=== PATIENT | female | born 1955 | race Caucasian/White ===

== ENCOUNTER 2021-03-22 08:48 | Emergency (ER) | payer MEDICARE, SELFPAY ==
[2021-03-22 09:36] VITALS: BP 131/68; PULSE 79; RESP 18; TEMP 36.9; O2SAT 98; BMI 29.2
== END 2021-03-22 12:35 | disposition left against medical advice (07) ==
PROVIDERS: Emergency Provider Emergency Medicine; PCP Registered Nurse Diabetes Educator
CPT/HCPCS: 99281

== ENCOUNTER → 2021-04-10 09:44 | Outpatient (CLI) | payer MEDICARE, SELFPAY ==
[2021-04-10 10:04] LABS: RBC Urine None Seen (0-5/HPF)
[2021-04-10 11:45] LABS: Add Manual Diff / Slide Review NO; Basophils Absolute Auto 0 /uL (0-100); Basophils Percent Auto 0.6 % (0-2); Eosinophils Absolute Auto 100 /uL (0-450); Eosinophils Percent Auto 0.8 % (2-4); Hematocrit 38.3 % (36-46); Hemoglobin 12.7 g/dL (12.0-16.0); Lymphocytes Absolute Auto 1400 /uL (1100-4500); Lymphocytes Percent Auto 20.8 % (25-40); Mean Corpuscular HGB Conc 33.2 % (30-36); Mean Corpuscular Hemoglobin 27.5 PG (26-34); Mean Corpuscular Volume 82.7 fL (80-100); Monocytes Absolute Auto 400 /uL (0-900); Monocytes Percent Auto 5.5 % (3-14); Neutrophils Absolute Auto 4900 /uL (1500-7000); Neutrophils Percent Auto 72.3 % (50-75); Platelet Count 224 X10^3/uL (150-400); Red Blood Cell Count 4.63 X10^6/uL (4.0-5.2); Red Cell Distribution Width 14.2 % (11.6-14.8); White Blood Cell Count 6.8 X10^3/uL (4.5-11.0)
[2021-04-10 12:04] LABS: Erythrocyte Sedimentation Rate 23 MM/HR (0-20)
[2021-04-10 12:34] LABS: Appearance Urine UA CLEAR; Bilirubin Urine UA NEGATIVE (NEGATIVE); Color Urine UA YELLOW; Glucose Urine UA NEGATIVE (Negative); Ketones Urine UA TRACE (NEGATIVE); Leukocyte Esterase Urine UA TRACE (NEGATIVE); Nitrite Urine UA NEGATIVE (Negative); Occult Blood Urine UA 1+ (Negative); Protein Urine UA NEGATIVE (Negative); Specific Gravity Urine UA <=1.005 (1.000-1.035); Urobilinogen Urine UA 0.2 E.U./dL (0.2)
[2021-04-10 12:50] LABS: Alanine Aminotransferase 21 IU/L (<35); Albumin 4.5 g/dL (3.5-5.0); Albumin Globulin Ratio 1.3 (1.0-2.8); Alkaline Phosphatase 81 U/L (38-126); Aspartate Aminotransferase 38 IU/L (14-36); BUN Creatinine Ratio 7.1 (6-22); Bilirubin Total 0.4 mg/dL (0.2-1.3); Blood Urea Nitrogen 7 mg/dL (7-17); C-Reactive Protein Quant < 0.5 mg/dL (<1.0); Calcium 9.9 mg/dL (8.4-10.2); Carbon Dioxide 26 mmol/L (22-32); Chloride 103 mmol/L (98-107); Estimated Glomerular Filt Rate 57.3 mL/min (>60); Globulin 3.4 g/dL (1.7-4.1); Glucose 97 mg/dL (80-110); HEMOLYSIS < 15 (0-50); Potassium 3.9 mmol/L (3.4-5.1); Sodium 138 mmol/L (137-145); Total Protein 7.9 g/dL (6.3-8.2)
[2021-04-10 12:50] LABS: Creatinine Urine Random 94.9 mg/dL
[2021-04-10 12:59] LABS: Bacteria Urine Occasional (0-1); Culture Indicated Urine Cult Not Indicated; Squamous Epithelial Cell Urine 0-1 /HPF (0-5/HPF); WBC Urine 0-1/HPF (0-5/HPF)
[2021-04-10 13:00] LABS: Microalbumin Urine Random < 0.6 mg/dL (0-1.6)
[2021-04-10 13:25] LABS: TSH w/ Reflex to FT4 0.11 uIU/mL (0.47-4.68)
[2021-04-10 13:42] LABS: Vitamin B12 968 pg/mL (239-931)
[2021-04-10 15:11] LABS: Free T4, Direct Thyroxine 2.51 ng/dL (0.78-2.19)
== END ==
PROVIDERS: PCP Registered Nurse Diabetes Educator; Referring Provider Registered Nurse Diabetes Educator; Visit Provider Registered Nurse Diabetes Educator
DX: F33.41 Major depressive disorder, recurrent, in partial remission (principal); R63.4 Abnormal weight loss; F41.9 Anxiety disorder, unspecified
CPT/HCPCS: 36415; 80053; 81001; 82043; 82570; 82607; 84439; 84443; 85025; 85651; 86140

== ENCOUNTER → 2021-04-17 09:39 | Outpatient (CLI) | payer MEDICARE, MEDICAID, SELFPAY ==
--- NOTE | 2021-04-17 09:43 | DI.US.S_ITS ---
PROCEDURE: US RENAL COMPLETE INDICATIONS: CHRONIC KIDNEY DISEASE STAGE 3A TECHNIQUE: Real-time scanning was performed of the kidneys and bladder, with image documentation. COMPARISON: None. FINDINGS: Kidneys: Kidneys are reduced in size. Right kidney measures 8.1 cm long; left kidney measures 8.7 cm long. Right renal cortical thickness is 1.4 cm; left renal cortical thickness is 1.5 cm. Renal cortical echotexture is normal. No hydronephrosis or nephrolithiasis. No suspicious solid mass lesions. Bladder: Pre-void bladder volume is 250 cc mL. Post-void residual is 30 mL. Pre-void images demonstrate no intraluminal masses or stones. On pre-void images, bilateral ureteral jets are noted with color Doppler interrogation. (Of note, ureteral jets may not be detectable in up to 25% of cases due to insufficient differences in specific gravity between ureteral and bladder urine). Miscellaneous: No free pelvic fluid. IMPRESSION: No hydronephrosis or nephrolithiasis is found but the renal size is small bilaterally consistent with bilateral renal cortical atrophy. The bladder function appears normal, with only a small postvoid residual of 30 cc. Dictated by: Arturo Ruelas M.D. on 04/17/2021 at 13:04 Approved by: Arturo Ruelas M.D. on 04/17/2021 at 13:06
== END ==
PROVIDERS: PCP Registered Nurse Diabetes Educator; Referring Provider Registered Nurse Diabetes Educator; Visit Provider Registered Nurse Diabetes Educator
DX: N18.31 Chronic kidney disease, stage 3a (principal)
CPT/HCPCS: 76770

== ENCOUNTER → 2021-06-25 15:36 | Outpatient (CLI) | payer MEDICARE, MEDICAID, SELFPAY ==
[2021-06-25 18:13] LABS: TSH w/ Reflex to FT4 0.45 uIU/mL (0.47-4.68)
[2021-06-25 18:54] LABS: Free T4, Direct Thyroxine 1.61 ng/dL (0.78-2.19)
== END ==
PROVIDERS: PCP Registered Nurse Diabetes Educator; Referring Provider Registered Nurse Diabetes Educator; Visit Provider Registered Nurse Diabetes Educator
DX: E03.9 Hypothyroidism, unspecified (principal); N18.31 Chronic kidney disease, stage 3a; R70.0 Elevated erythrocyte sedimentation rate; R74.8 Abnormal levels of other serum enzymes
CPT/HCPCS: 36415; 84439; 84443

== ENCOUNTER → 2021-08-04 09:25 | Outpatient (CLI) | payer MEDICARE, MEDICAID, SELFPAY ==
--- NOTE | 2021-08-04 | DI.MG.S_ITS ---
BILATERAL DIGITAL SCREENING MAMMOGRAM 3D/2D WITH CAD: 08/04/2021 CLINICAL: Routine screening. Family history of breast cancer. Comparison is made to exams dated: 04/01/2018 mammogram, 07/24/2016 mammogram - [facility], and 12/01/2008 mammogram - [facility]. There are scattered fibroglandular elements in both breasts. Current study was also evaluated with a Computer Aided Detection (CAD) system. There is a benign focal asymmetry in the right breast. No significant masses, calcifications, or other findings are seen in either breast. There has been no significant interval change. IMPRESSION: BENIGN There is no mammographic evidence of malignancy. A 1 year screening mammogram is recommended. This exam was interpreted at Station ID: [id number]. NOTE: For mammograms, a report in lay terms will be sent to the patient. Approximately 15% of breast malignancies will not be visualized mammographically. In the management of a palpable breast mass, a negative mammogram must not discourage biopsy of a clinically suspicious lesion. Electronically Signed By: Tanner johnston/glory:08/06/2021 09:55:45 letter sent: Normal Exam ACR BI-RADS Category 2: Benign Finding(s) 3342F
== END ==
PROVIDERS: PCP Registered Nurse Diabetes Educator; Referring Provider Registered Nurse Diabetes Educator; Visit Provider Registered Nurse Diabetes Educator
DX: Z12.31 Encounter for screening mammogram for malignant neoplasm of breast (principal); Z80.3 Family history of malignant neoplasm of breast
CPT/HCPCS: 77063; 77067

== ENCOUNTER → 2021-08-14 08:29 | Outpatient (CLI) | payer MEDICARE, MEDICAID, SELFPAY ==
[2021-08-14 09:18] LABS: Hematocrit 36.2 % (36-46); Hemoglobin 12.3 g/dL (12.0-16.0); Mean Corpuscular HGB Conc 33.9 % (30-36); Mean Corpuscular Hemoglobin 27.9 PG (26-34); Mean Corpuscular Volume 82.3 fL (80-100); Platelet Count 197 X10^3/uL (150-400); Red Cell Distribution Width 13.4 % (11.6-14.8); White Blood Cell Count 6.6 X10^3/uL (4.5-11.0)
[2021-08-14 09:29] LABS: Appearance Urine UA CLEAR; Bilirubin Urine UA NEGATIVE (NEGATIVE); Color Urine UA YELLOW; Glucose Urine UA NEGATIVE (Negative); Ketones Urine UA NEGATIVE (NEGATIVE); Leukocyte Esterase Urine UA 1+ (NEGATIVE); Nitrite Urine UA NEGATIVE (Negative); Occult Blood Urine UA 1+ (Negative); Protein Urine UA NEGATIVE (Negative); Specific Gravity Urine UA 1.015 (1.000-1.035)
[2021-08-14 09:31] LABS: pH Urine UA 5.5 (4.5-8.0)
[2021-08-14 10:04] LABS: Bacteria Urine Few (2-10); Culture Indicated Urine Specimen Cultured; RBC Urine 0-1/HPF (0-5/HPF); Squamous Epithelial Cell Urine 1-5 /HPF (0-5/HPF); Transitional Epi Cells Urine 5-10/HPF (0-5/HPF); WBC Urine 5-10/HPF (0-5/HPF)
[2021-08-14 10:48] LABS: Alanine Aminotransferase 7 IU/L (<35); Albumin 4.3 g/dL (3.5-5.0); Albumin Globulin Ratio 1.3 (1.0-2.8); Alkaline Phosphatase 87 U/L (38-126); Aspartate Aminotransferase 25 IU/L (14-36); BUN Creatinine Ratio 6.9 (6-22); Bilirubin Total 0.5 mg/dL (0.2-1.3); Blood Urea Nitrogen 7 mg/dL (7-17); Calcium 9.5 mg/dL (8.4-10.2); Carbon Dioxide 31 mmol/L (22-32); Chloride 104 mmol/L (98-107); Cholesterol 150 mg/dL (140-199); Estimated Glomerular Filt Rate 54.7 mL/min (>60); Globulin 3.2 g/dL (1.7-4.1); Glucose 104 mg/dL (80-110); HDL Cholesterol 70 mg/dL (40-60); HEMOLYSIS < 15 (0-50); LDL Cholesterol Calculated 60 mg/dL (<100); Potassium 3.4 mmol/L (3.4-5.1); Sodium 143 mmol/L (137-145); Total Protein 7.5 g/dL (6.3-8.2); Triglycerides 101 mg/dL (35-150)
[2021-08-14 10:54] LABS: Creatinine Urine Random 174.4 mg/dL
[2021-08-14 11:01] LABS: Microalbumi Creatinin Ratio Ur 7.4 ug/mg CR (<30); Microalbumin Urine Random 1.3 mg/dL (0-1.6)
[2021-08-14 11:02] LABS: TSH w/ Reflex to FT4 4.83 uIU/mL (0.47-4.68)
[2021-08-14 11:30] LABS: Free T4, Direct Thyroxine 1.68 ng/dL (0.78-2.19)
== END ==
PROVIDERS: PCP Registered Nurse Diabetes Educator; Referring Provider Registered Nurse Diabetes Educator; Visit Provider Registered Nurse Diabetes Educator
DX: N18.31 Chronic kidney disease, stage 3a (principal); E03.9 Hypothyroidism, unspecified; E78.5 Hyperlipidemia, unspecified
CPT/HCPCS: 36415; 80053; 80061; 81001; 82043; 82570; 84439; 84443; 85027; 87086

== ENCOUNTER → 2021-09-06 15:34 | Outpatient (CLI) | payer MEDICARE, MEDICAID, SELFPAY | PROVIDERS: PCP Registered Nurse Diabetes Educator; Visit Provider Registered Nurse Diabetes Educator | DX: R10.9 Unspecified abdominal pain (principal) | CPT/HCPCS: 87086 ==

== ENCOUNTER 2021-09-12 11:54 | Emergency (ER) | payer MEDICARE, MEDICAID, SELFPAY ==
[2021-09-12 12:03] VITALS: BP 181/77; PULSE 85; RESP 15; TEMP 36.6; O2SAT 98; BMI 25.9
[2021-09-12 15:45] VITALS: BP 177/83; PULSE 81; RESP 18; O2SAT 98
[2021-09-12 16:05] LABS: Appearance Urine UA CLEAR; Bilirubin Urine UA NEGATIVE (NEGATIVE); Color Urine UA YELLOW; Glucose Urine UA NEGATIVE (Negative); Ketones Urine UA NEGATIVE (NEGATIVE); Leukocyte Esterase Urine UA NEGATIVE (NEGATIVE); Nitrite Urine UA NEGATIVE (Negative); Occult Blood Urine UA NEGATIVE (Negative); Protein Urine UA NEGATIVE (Negative); Specific Gravity Urine UA <=1.005 (1.000-1.035); Urobilinogen Urine UA 0.2 E.U./dL (0.2)
[2021-09-12 16:16] LABS: Bacteria Urine None Seen; Culture Indicated Urine Cult Not Indicated; RBC Urine None Seen (0-5/HPF); Squamous Epithelial Cell Urine 0-1 /HPF (0-5/HPF); WBC Urine 0-1/HPF (0-5/HPF)
--- NOTE | 2021-09-12 16:18 | DI.CT.S_ITS ---
PROCEDURE: CT ABDOMEN PELVIS W CON INDICATIONS: pelvic pain TECHNIQUE: After the administration of oral and IV contrast, axial sections were acquired from the lung bases to the pubic symphysis. Coronal and sagittal reformats were performed. For radiation dose reduction, the following was used: automated exposure control, adjustment of mA and/or kV according to patient size. COMPARISON: [facility], MR, MR ABDOMEN PELVIS WITH/WITHOUT CONTRAST, 08/09/2021, 14:09. FINDINGS: Image quality: Excellent. Lung bases: Unremarkable. Heart: No significant findings. ABDOMEN: Liver: Unremarkable. Decreased attenuation, compatible with hepatic steatosis. Gallbladder: Unremarkable. Biliary ducts: Unremarkable. Pancreas: Unremarkable. Spleen: Unremarkable. Adrenal Glands: Unremarkable. Kidneys and Ureters: Unremarkable. Stomach and Bowel: No evidence of intestinal obstruction or inflammatory change. [id number]-np-[id number] stool burden throughout the colon. Normal appearance of the appendix. Peritoneum: No abnormal intraperitoneal fluid. No free air. Ventral Wall: No hernia. Abdominal Nodes: No retroperitoneal or mesenteric adenopathy by size criteria. Vessels: Aorta and inferior vena cava are normal in size. PELVIS: Pelvic Organs: Unremarkable. Tubal ligation clips are seen. Bladder: Unremarkable. Pelvic Nodes: No enlarged lymph nodes. Miscellaneous: No inguinal hernias are seen. Bones: Unremarkable. Minimal grade 1 anterolisthesis at L4-5. IMPRESSION: 1. No acute intra-abdominal/pelvic abnormality. Dictated by: Isaac Mcguire M.D. on 09/12/2021 at 17:52 Approved by: Isaac Mcguire M.D. on 09/12/2021 at 17:57
[2021-09-12] MEDS: PHENAZOPYRIDINE 100 MG TABLET PO (16:22)
[2021-09-12] MEDS: cefUROXime 250 MG TABLET 500 MG PO (16:24)
--- NOTE | 2021-09-12 16:44 | ED.FEMALEGU ---
HPI - Female Genitourinary <Roma De La Garza, [facility] - Last Filed: 09/12/21 21:01> General Chief complaint: Urogenital-Female Stated complaint: Pressure/pain from UTI. Meds aren't helping Time Seen by Provider: 09/12/21 15:36 Source: patient Mode of arrival: Ambulatory History of Present Illness HPI Narrative: 65-year-old female presents to the emergency department complaining of dysuria and low pelvic pressure which has been ongoing since she started antibiotics for UTI 6 days ago. Patient has been on a course of Bactrim. Patient complains of pelvic fullness and discomfort, and nausea without vomiting. She also endorses a history of hypothyroidism, Patricio's esophagus, CKD, low back pain depression and anxiety. Patient denies any recent fever, she denies any rash, she denies any flank pain. Patient reports that she has been drinking a lot of fluids to stay hydrated but urination is still painful. She endorses that she does not eat much because she does not have an appetite, she has not felt well for weeks so she does not eat when she does not feel good. Related Data Previous Rx's Medication Instructions Recorded trazodone 50 mg tablet 25 mg PO DAILY PRN #30 tab 05/28/21 sumatriptan succinate 6 mg/0.5 mL 6 mg (0.5 mL) SUBCUT ONCE PRN #12 07/20/21 subcutaneous pen injector (Imitrex ml STATdose Pen) ondansetron HCl 4 mg tablet 4 mg PO Q8H PRN #30 tab 07/31/21 erenumab-aooe 140 mg/mL 140 mg SUBCUT QMONTH #1 ml 08/20/21 subcutaneous auto-injector (Aimovig Autoinjector) levothyroxine 50 mcg tablet 50 mcg PO DAILY #90 tab 08/20/21 omeprazole 20 mg capsule,delayed 20 mg PO BID #180 cap 08/20/21 release simvastatin 40 mg tablet 40 mg PO BEDTIME #90 tab 08/20/21 trazodone 100 mg tablet 100 mg PO DAILY #90 tab 08/20/21 sulfamethoxazole 800 1 tab PO BID #14 tab 09/06/21 mg-trimethoprim 160 mg tablet (Bactrim DS) cefdinir 300 mg capsule 300 mg PO BID 7 Days #14 cap 09/12/21 ondansetron HCl 4 mg tablet 4 mg PO Q8H PRN #14 tab 09/12/21 (Zofran) phenazopyridine 100 mg tablet 100 mg PO TID PRN #7 tab 09/12/21 (Pyridium) Allergies Allergy/AdvReac Type Severity Reaction Status Date / Time No Known Drug Allergies Allergy Verified 09/12/21 12:03 Review of Systems <SANTIAGO Whiting - Last Filed: 09/12/21 21:01> Review of Systems Narrative: General: denies fever, chills Head/Neck: denies headache, neck pain Eyes: denies visual changes, eye pain Cardio: denies chest pain, palpitations Respiratory: denies shortness of breath, cough GI: denies abdominal pain, nausea, vomiting, or diarrhea : Endorses dysuria without hematuria, complains of low pelvic pressure MSK: denies joint pain, muscle weakness Skin: denies rash, itching Neuro: denies numbness, tingling Patient History <SANTIAGO Whiting - Last Filed: 09/12/21 21:01> Medical History Anxiety Barretts esophagus Chronic low back pain CKD (chronic kidney disease) stage 3, GFR 30-59 ml/min Colon polyps Depression Dyslipidemia Fibromyalgia Hypothyroidism Migraine headache with aura Obstructive sleep apnea PTSD (post-traumatic stress disorder) Renal atrophy, bilateral alcohol intake frequency: holidays/special occasions only Substance Use Type: does not use Exam <SANTIAGO Whiting - Last Filed: 09/12/21 21:01> Narrative Exam Narrative: Independently reviewed vitals signs and nursing notes. General: Awake, alert, nontoxic, no cardiorespiratory distress Head/Neck: Atraumatic, neck full range of motion Eyes: EOMI, conjunctiva normal Nose: nares patent, no rhinorrhea Mouth/Throat: moist mucus membranes, posterior pharynx normal, no oral lesions Cardio: Regular rate and rhythm, no peripheral edema Respiratory: respirations unlabored without wheezing, stridor, or rales. No retractions. GI: Abdomen soft, nontender to palpation x4 quadrants, pelvic area is nontender to palpation as well but she endorses feeling bloated MSK: Moves all extremities, neurovascularly intact Skin: Normal capillary refill, no rash Neuro: Normal speech and cognition, normal gait Initial Vital Signs Initial Vital Signs: Vital Signs Temperature 97.9 F 09/12/21 12:03 Pulse Rate 85 09/12/21 12:03 Respiratory Rate 15 09/12/21 12:03 Blood Pressure 181/77 H 09/12/21 12:03 Pulse Oximetry 98 09/12/21 12:03 <Tanner Valle MD - Last Filed: 09/17/21 12:27> Initial Vital Signs Initial Vital Signs: Vital Signs Temperature 97.9 F 09/12/21 12:03 Pulse Rate 85 09/12/21 12:03 Respiratory Rate 15 09/12/21 12:03 Blood Pressure 181/77 H 09/12/21 12:03 Pulse Oximetry 98 09/12/21 12:03 Course <SANTIAGO Whiting - Last Filed: 09/12/21 21:01> Orders Ordered: Discontinued Medications Cefuroxime Axetil (Cefuroxime 250 Mg Tablet) 500 mg PO NOW ONE Stop: 09/12/21 16:09 Last Admin: 09/12/21 16:24 Dose: Not Given Documented by: CARMEN Cefuroxime Axetil (Cefuroxime 250 Mg Tablet) 500 mg PO NOW ONE Stop: 09/12/21 16:23 Last Admin: 09/12/21 16:24 Dose: 500 mg Documented by: CARMEN Sodium Chloride (Normal Saline 0.9%) 1,000 mls @ 1,000 mls/hr IV BOLUS ONE Stop: 09/12/21 19:04 Last Admin: 09/12/21 18:13 Dose: 1,000 mls/hr Documented by: CARMEN Phenazopyridine HCl (Phenazopyridine 100 Mg Tablet) 100 mg PO NOW ONE Stop: 09/12/21 16:10 Last Admin: 09/12/21 16:22 Dose: 100 mg Documented by: CAREMN Potassium Chloride (Potassium Chloride 20 Meq Tab) 20 meq PO NOW ONE Stop: 09/12/21 18:06 Last Admin: 09/12/21 18:12 Dose: 20 meq Documented by: CARMEN Vital Signs Vital signs: Vital Signs - 8 hr 09/12/21 15:45 09/12/21 17:10 09/12/21 18:17 Pulse Rate 81 80 73 Respiratory Rate 18 18 18 Blood Pressure 177/83 H 159/72 H 154/101 H Pulse Oximetry 98 96 98 09/12/21 19:13 Pulse Rate 75 Respiratory Rate 18 Blood Pressure 155/90 H Pulse Oximetry 98 <Tanner Valle MD - Last Filed: 09/17/21 12:27> Orders Ordered: Discontinued Medications Cefuroxime Axetil (Cefuroxime 250 Mg Tablet) 500 mg PO NOW ONE Stop: 09/12/21 16:09 Last Admin: 09/12/21 16:24 Dose: Not Given Documented by: CARMEN Cefuroxime Axetil (Cefuroxime 250 Mg Tablet) 500 mg PO NOW ONE Stop: 09/12/21 16:23 Last Admin: 09/12/21 16:24 Dose: 500 mg Documented by: CARMEN Sodium Chloride (Normal Saline 0.9%) 1,000 mls @ 1,000 mls/hr IV BOLUS ONE Stop: 09/12/21 19:04 Last Admin: 09/12/21 18:13 Dose: 1,000 mls/hr Documented by: CARMEN Phenazopyridine HCl (Phenazopyridine 100 Mg Tablet) 100 mg PO NOW ONE Stop: 09/12/21 16:10 Last Admin: 09/12/21 16:22 Dose: 100 mg Documented by: CARMEN Potassium Chloride (Potassium Chloride 20 Meq Tab) 20 meq PO NOW ONE Stop: 09/12/21 18:06 Last Admin: 09/12/21 18:12 Dose: 20 meq Documented by: CARMEN Vital Signs Vital signs: Vital Signs - 8 hr 09/12/21 15:45 09/12/21 17:10 09/12/21 18:17 Pulse Rate 81 80 73 Respiratory Rate 18 18 18 Blood Pressure 177/83 H 159/72 H 154/101 H Pulse Oximetry 98 96 98 09/12/21 19:13 Pulse Rate 75 Respiratory Rate 18 Blood Pressure 155/90 H Pulse Oximetry 98 MDM - Female Genitourinary <SANTIAGO Whiting - Last Filed: 09/12/21 21:01> Lab Data Result diagrams: 09/12/21 17:06 09/12/21 17:06 Labs: Lab Results 01/12/22 01/12/22 01/12/22 Range/Units 15:37 17:06 17:06 WBC 9.6 (4.5-11.0) X10^3/uL RBC 4.39 (4.0-5.2) X10^6/uL Hgb 12.1 (12.0-16.0) g/dL Hct 35.9 L (36-46) % MCV 81.8 (80-100) fL MCH 27.5 (26-34) PG MCHC 33.7 (30-36) % RDW 13.7 (11.6-14.8) % Plt Count 226 (150-400) X10^3/uL Neut % (Auto) Not Reportable Lymph % (Auto) Not Reportable [place] % (Auto) Not Reportable Eos % (Auto) Not Reportable Baso % (Auto) Not Reportable Lymph # (Auto) Not Reportable [place] # (Auto) Not Reportable Baso # (Auto) Not Reportable Total Counted 100 Seg Neutrophils % 58.0 (38-70) % Lymphocytes % (Manual) 24.0 L (25-45) % Atypical Lymphs % 11.0 H ( - 0) % Monocytes % (Manual) 6.0 (2-11) % Eosinophils % (Manual) 1.0 L (2-4) % Neutrophils # (Manual) 5568 (7482-2355) /uL RBC Morphology Normal morphology Sodium 139 (137-145) mmol/L Potassium 2.8 L (3.4-5.1) mmol/L Chloride 97 L (98-107) mmol/L Carbon Dioxide 33 H (22-32) mmol/L BUN 10 (7-17) mg/dL Creatinine 1.09 H (0.52-1.04) mg/dL Estimated GFR 50.7 L (>60) mL/min BUN/Creatinine Ratio 9.2 (6-22) Glucose 105 (80-110) mg/dL Calcium 9.5 (8.4-10.2) mg/dL Total Bilirubin 0.5 (0.2-1.3) mg/dL AST 30 (14-36) IU/L ALT 9 (<35) IU/L Alkaline Phosphatase 70 (38-126) U/L Total Protein 8.0 (6.3-8.2) g/dL Albumin 4.6 (3.5-5.0) g/dL Globulin 3.4 (1.7-4.1) g/dL Albumin/Globulin Ratio 1.4 (1.0-2.8) Urine Color Yellow Urine Appearance Clear Urine pH 7.0 (4.5-8.0) Ur Specific [place] <=1.005 (1.000-1.035) Urine Protein Negative (Negative) Urine Glucose (UA) Negative (Negative) g/dL Urine Ketones Negative (NEGATIVE) Urine Occult Blood Negative (Negative) Urine Nitrate Negative (Negative) Urine Bilirubin Negative (NEGATIVE) Urine Urobilinogen 0.2 (0.2) E.U./dL Ur Leukocyte Esterase Negative (NEGATIVE) Urine RBC None seen (0-5/HPF) Urine WBC 0-1/hpf (0-5/HPF) Ur Squamous Epith Cells 0-1 /hpf (0-5/HPF) Urine Bacteria None seen (None) Ur Culture Indicated? Cult not indicated Imaging Data CT scan - abdomen/pelvis: Radiologist's Impression: PROCEDURE:? CT ABDOMEN PELVIS W CON ? INDICATIONS:? pelvic pain ? TECHNIQUE:? After the administration of oral and IV contrast, axial sections were acquired from the lung bases to the pubic symphysis.? Coronal and sagittal reformats were performed.? For radiation dose reduction, the following was used:? automated exposure control, adjustment of mA and/or kV according to patient size. ? COMPARISON:? [facility], MR, MR ABDOMEN PELVIS WITH/WITHOUT CONTRAST, 08/09/2021, 14:09. ? FINDINGS:? Image quality:? Excellent.? ? Lung bases:? Unremarkable.? ? Heart:? No significant findings. ? ? ABDOMEN: Liver:? Unremarkable.? ? Decreased attenuation, compatible with hepatic steatosis. Gallbladder:? Unremarkable.? ? Biliary ducts:? Unremarkable.? ? Pancreas:? Unremarkable.? ? Spleen:? Unremarkable.? ? Adrenal Glands:? Unremarkable.? ? Kidneys and Ureters:? Unremarkable.? ? ? Stomach and Bowel:? No evidence of intestinal obstruction or inflammatory change.? Pphy-zs-rpaufcse stool burden throughout the colon.? Normal appearance of the appendix. Peritoneum:? No abnormal intraperitoneal fluid.? No free air.? ? Ventral Wall: ? No hernia.? Abdominal Nodes:? No retroperitoneal or mesenteric adenopathy by size criteria.? Vessels:? Aorta and inferior vena cava are normal in size.? ? PELVIS: Pelvic Organs:? Unremarkable.? ? Tubal ligation clips are seen. Bladder:? Unremarkable.? ? Pelvic Nodes: No enlarged lymph nodes.? Miscellaneous: No inguinal hernias are seen. ? ? ? Bones:? Unremarkable.? ? Minimal grade 1 anterolisthesis at L4-5. ? ? IMPRESSION:? ? 1.? No acute intra-abdominal/pelvic abnormality.? ? ? Dictated by: Isaac Mcguire M.D. on 09/12/2021 at 17:52 ? ? Approved by: Isaac Mcguire M.D. on 09/12/2021 at 17:57 ? MDM Narrative Medical decision making narrative: 65-year-old female presents to the emergency department for dysuria and pelvic pressure complaints and is on day 6 of Bactrim for a UTI. Patient reports that she has not been eating much recently and her nutrition has been poor. Her exam was unremarkable, CT imaging was obtained upper pelvis because she mentioned that she is concerned something was wrong with her reproductive organs, she denies any hysterectomy or vaginal bleeding. Her CT was unremarkable without signs of acute cystitis however her urine might not reflect bacteria due to her current regimen on Bactrim. On chart review her urine culture was indeterminate with 3 or more colony types and mixed Gram-positive ab. I suspect that her urine is most likely resistant to Bactrim, another urine culture was sent, she was transitioned to cefdinir which will hopefully be auto claim representative on her kidneys. Patient was given 1 L of normal saline after getting IV contrast to reduce possible ANNIE. Patient understands to follow-up with Mihai Shaw at the soonest available appointment, she was also found to have a potassium of 2.8 but due to her elevated creatinine I opted to give her only 20 mEq of potassium and encouraged her to start taking a multi-vitamin daily and eating nutritious food. Patient endorses that she does eat much and she has not been feeling good for quite some time. Patient is appropriate and amenable to discharge home. Vital signs are stable on repeat examination is unremarkable. Patient has been informed of results. Patient has been given strict return to ER precautions for any new or worsening symptoms. Patient understands to follow up closely with outpatient providers as instructed. Patient understands plan and agrees to discharge home. All questions and concerns answered at this time. <Tanner Valle MD - Last Filed: 09/17/21 12:27> Lab Data Labs: Lab Results 09/12/21 09/12/21 09/12/21 Range/Units 15:37 17:06 17:06 WBC 9.6 (4.5-11.0) X10^3/uL RBC 4.39 (4.0-5.2) X10^6/uL Hgb 12.1 (12.0-16.0) g/dL Hct 35.9 L (36-46) % MCV 81.8 (80-100) fL MCH 27.5 (26-34) PG MCHC 33.7 (30-36) % RDW 13.7 (11.6-14.8) % Plt Count 226 (150-400) X10^3/uL Neut % (Auto) Not Reportable Lymph % (Auto) Not Reportable [place] % (Auto) Not Reportable Eos % (Auto) Not Reportable Baso % (Auto) Not Reportable Lymph # (Auto) Not Reportable [place] # (Auto) Not Reportable Baso # (Auto) Not Reportable Total Counted 100 Seg Neutrophils % 58.0 (38-70) % Lymphocytes % (Manual) 24.0 L (25-45) % Atypical Lymphs % 11.0 H ( - 0) % Monocytes % (Manual) 6.0 (2-11) % Eosinophils % (Manual) 1.0 L (2-4) % Neutrophils # (Manual) 5568 (8165-1626) /uL RBC Morphology Normal morphology Sodium 139 (137-145) mmol/L Potassium 2.8 L (3.4-5.1) mmol/L Chloride 97 L (98-107) mmol/L Carbon Dioxide 33 H (22-32) mmol/L BUN 10 (7-17) mg/dL Creatinine 1.09 H (0.52-1.04) mg/dL Estimated GFR 50.7 L (>60) mL/min BUN/Creatinine Ratio 9.2 (6-22) Glucose 105 (80-110) mg/dL Calcium 9.5 (8.4-10.2) mg/dL Total Bilirubin 0.5 (0.2-1.3) mg/dL AST 30 (14-36) IU/L ALT 9 (<35) IU/L Alkaline Phosphatase 70 (38-126) U/L Total Protein 8.0 (6.3-8.2) g/dL Albumin 4.6 (3.5-5.0) g/dL Globulin 3.4 (1.7-4.1) g/dL Albumin/Globulin Ratio 1.4 (1.0-2.8) Urine Color Yellow Urine Appearance Clear Urine pH 7.0 (4.5-8.0) Ur Specific [place] <=1.005 (1.000-1.035) Urine Protein Negative (Negative) Urine Glucose (UA) Negative (Negative) g/dL Urine Ketones Negative (NEGATIVE) Urine Occult Blood Negative (Negative) Urine Nitrate Negative (Negative) Urine Bilirubin Negative (NEGATIVE) Urine Urobilinogen 0.2 (0.2) E.U./dL Ur Leukocyte Esterase Negative (NEGATIVE) Urine RBC None seen (0-5/HPF) Urine WBC 0-1/hpf (0-5/HPF) Ur Squamous Epith Cells 0-1 /hpf (0-5/HPF) Urine Bacteria None seen (None) Ur Culture Indicated? Cult not indicated Discharge Plan Departure Patient Disposition: Home Clinical Impression: UTI (urinary tract infection) Qualifiers: Urinary tract infection type: acute cystitis Hematuria presence: with hematuria Qualified Code(s): N30.01 - Acute cystitis with hematuria Instructions: DI for Urinary Tract Infection (UTI) Activity Restrictions/Additional Instructions: Linda, thank you for coming in today and trusting us with your care. This is most likely a UTI which has been resistant to your Bactrim antibiotic which he been taking. I have called in a new prescription for you as well as some nausea medicine and Pyridium to help with the spasming. Please follow-up with Mihai Bradford as soon as you can. I believe that you have had a nutrition deficit for the last long while based on your lab work. Please remember to trying eat healthy foods and stay hydrated. I hope you feel better soon. *What to do: *Please continue to take your regular medications as directed. [ x] New medication prescriptions sent to your pharmacy: [ [facility]] [ ] New medication written as a paper prescription [] No new medications given *Please follow up with your primary care provider in 2-3 days, call for an appointment. Let them know you were seen in the Emergency Department and that we ask that you be seen in follow up. We will electronically transmit a record of today's note if your PCP is in our system *If you do not have a primary care provider please contact the [facility] Resource line at [phone]. They will ask some questions about your medical history and help get you set up with a doctor in the community. *Return to Emergency Department if you should have any new, worsening or concerning symptoms, such as [fever greater than 101F, chills, worsening pain, persistent vomiting or other bothersome symptoms] Prescriptions: New cefdinir 300 mg capsule 300 mg PO BID 7 Days Qty: 14 0RF ondansetron HCl [Zofran] 4 mg tablet 4 mg PO Q8H PRN (Reason: nausea and vomiting) Qty: 14 0RF phenazopyridine [Pyridium] 100 mg tablet 100 mg PO TID PRN (Reason: pain) Qty: 7 0RF No Action sumatriptan succinate [Imitrex STATdose Pen] 6 mg/0.5 mL pen injector 6 mg SUBCUT ONCE PRN (Reason: migraine headache) Qty: 12 3RF Rx Instructions: may repeat dose once in 1 hour if not relieved levothyroxine 50 mcg tablet 50 mcg PO DAILY Qty: 90 0RF simvastatin 40 mg tablet 40 mg PO BEDTIME Qty: 90 3RF Aimovig Autoinjector 140 mg/mL auto-injector 140 mg SUBCUT QMONTH Qty: 1 11RF omeprazole 20 mg capsule,delayed release(DR/EC) 20 mg PO BID Qty: 180 3RF trazodone 100 mg tablet 100 mg PO DAILY Qty: 90 3RF trazodone 50 mg tablet 25 mg PO DAILY PRN (Reason: anxiety) Qty: 30 1RF Rx Instructions: Take as needed during the day in addition to nighttime dose ondansetron HCl 4 mg tablet 4 mg PO Q8H PRN (Reason: nausea and vomiting) Qty: 30 1RF sulfamethoxazole-trimethoprim [Bactrim DS] 800-160 mg tablet 1 tab PO BID Qty: 14 0RF Referrals: Mihai Bradford ARNP [Primary Care Provider] - <Tanner Valle MD - Last Filed: 09/17/21 12:27> Cosign ED Attending Cosignature Attestation: I was immediately available in the department for consultation. This documentation has been reviewed and I agree with assessment and plan. Supervised by Tanner Valle MD
[2021-09-12 17:10] VITALS: BP 159/72; PULSE 80; RESP 18; O2SAT 96
[2021-09-12 17:18] LABS: Hematocrit 35.9 % (36-46); Hemoglobin 12.1 g/dL (12.0-16.0); Mean Corpuscular HGB Conc 33.7 % (30-36); Mean Corpuscular Hemoglobin 27.5 PG (26-34); Mean Corpuscular Volume 81.8 fL (80-100); Platelet Count 226 X10^3/uL (150-400); Red Blood Cell Count 4.39 X10^6/uL (4.0-5.2); Red Cell Distribution Width 13.7 % (11.6-14.8); White Blood Cell Count 9.6 X10^3/uL (4.5-11.0)
[2021-09-12 17:21] LABS: Add Manual Diff / Slide Review YES
[2021-09-12 17:31] LABS: Alanine Aminotransferase 9 IU/L (<35); Albumin 4.6 g/dL (3.5-5.0); Albumin Globulin Ratio 1.4 (1.0-2.8); Alkaline Phosphatase 70 U/L (38-126); Aspartate Aminotransferase 30 IU/L (14-36); BUN Creatinine Ratio 9.2 (6-22); Bilirubin Total 0.5 mg/dL (0.2-1.3); Blood Urea Nitrogen 10 mg/dL (7-17); Calcium 9.5 mg/dL (8.4-10.2); Carbon Dioxide 33 mmol/L (22-32); Chloride 97 mmol/L (98-107); Estimated Glomerular Filt Rate 50.7 mL/min (>60); Globulin 3.4 g/dL (1.7-4.1); Glucose 105 mg/dL (80-110); HEMOLYSIS 23 (0-50); Potassium 2.8 mmol/L (3.4-5.1); Sodium 139 mmol/L (137-145)
[2021-09-12 17:42] LABS: Neutrophils Absolute Manual 5568 /uL (3000-5900); Total Cells Counted 100
[2021-09-12 17:43] LABS: RBC Morphology Normal Morphology
[2021-09-12] MEDS: POTASSIUM CHLORIDE 20 MEQ TAB PO (18:12)
[2021-09-12] MEDS: SODIUM CHLORIDE 0.9% 1,000 ML 1000 ML IV (18:13)
[2021-09-12 18:17] VITALS: BP 154/101; PULSE 73; RESP 18; O2SAT 98
[2021-09-12 19:13] VITALS: BP 155/90; PULSE 75; RESP 18; O2SAT 98
== END 2021-09-12 19:13 | disposition home or self-care (01) ==
PROVIDERS: Emergency Medicine; Emergency Provider Nurse Practitioner Critical Care Medicine; PCP Registered Nurse Diabetes Educator
DX: N30.01 Acute cystitis with hematuria (principal)
CPT/HCPCS: 74177; 80053; 81001; 85007; 85025; 99284

== ENCOUNTER → 2021-10-01 13:40 | Outpatient (CLI) | payer MEDICARE, MEDICAID, SELFPAY ==
[2021-10-01 14:36] LABS: Appearance Urine UA SL CLOUDY; Bilirubin Urine UA NEGATIVE (NEGATIVE); Color Urine UA YELLOW; Glucose Urine UA NEGATIVE (Negative); Ketones Urine UA NEGATIVE (NEGATIVE); Leukocyte Esterase Urine UA NEGATIVE (NEGATIVE); Nitrite Urine UA NEGATIVE (Negative); Occult Blood Urine UA TRACE-INTACT (Negative); Protein Urine UA NEGATIVE (Negative); Specific Gravity Urine UA <=1.005 (1.000-1.035); Urobilinogen Urine UA 0.2 E.U./dL (0.2)
[2021-10-01 14:53] LABS: Bacteria Urine Occasional (0-1); Culture Indicated Urine Cult Not Indicated; RBC Urine None Seen (0-5/HPF); Squamous Epithelial Cell Urine 1-5 /HPF (0-5/HPF); WBC Urine None Seen (0-5/HPF)
[2021-10-01 15:45] LABS: TSH w/ Reflex to FT4 8.48 uIU/mL (0.47-4.68)
[2021-10-01 16:23] LABS: Free T4, Direct Thyroxine 1.26 ng/dL (0.78-2.19)
[2021-10-03 14:45] LABS: BUN Creatinine Ratio 6.6 (6-22); Blood Urea Nitrogen 6 mg/dL (7-17); Calcium 9.8 mg/dL (8.4-10.2); Carbon Dioxide 24 mmol/L (22-32); Chloride 105 mmol/L (98-107); Estimated Glomerular Filt Rate > 60.0 mL/min (>60); Glucose 134 mg/dL (80-110); HEMOLYSIS 18 (0-50); Potassium 3.5 mmol/L (3.4-5.1); Sodium 140 mmol/L (137-145)
== END ==
PROVIDERS: PCP Registered Nurse Diabetes Educator; Referring Provider Registered Nurse Diabetes Educator; Visit Provider Registered Nurse Diabetes Educator
DX: E03.9 Hypothyroidism, unspecified (principal); N39.0 Urinary tract infection, site not specified; E87.6 Hypokalemia
CPT/HCPCS: 36415; 80048; 81001; 84439; 84443

== ENCOUNTER 2021-11-09 05:57 | Emergency (ER) | payer MEDICARE, MEDICAID, SELFPAY ==
[2021-11-09 06:04] VITALS: BP 194/95; PULSE 81; RESP 15; TEMP 36; O2SAT 98; BMI 25.4
--- NOTE | 2021-11-09 06:06 | ED.HA ---
HPI - Headache <Rishi De Dios DO - Last Filed: 11/10/21 03:53> General Chief Complaint: Headache Stated Complaint: migraine Time Seen by Provider: 11/09/21 06:05 History of Present Illness HPI Narrative: 66-year-old female former smoker with history of hypothyroid, hypertension and chronic migraines presents with a chief complaint of 11 days of a gradually worsening headache consistent with prior migraines. She states that it has been gradually worsening and seems to be worsened by bright lights and loud noise in might get a bit better in a dark quiet room. She typically takes prescription medications which she has done and her symptoms have not improved. She denies any trauma, neck pain or stiffness nor fever or chills. She takes no blood thinners. She denies any blurred vision, trouble speech or extremity numbness, tingling or weakness. She denies runny nose, sore throat or cough. She has no chest pain or shortness of breath Related Data Previous Rx's Medication Instructions Recorded sumatriptan succinate 6 mg/0.5 mL 6 mg (0.5 mL) SUBCUT ONCE PRN #12 07/20/21 subcutaneous pen injector (Imitrex ml STATdose Pen) ondansetron HCl 4 mg tablet 4 mg PO Q8H PRN #30 tab 07/31/21 erenumab-aooe 140 mg/mL 140 mg SUBCUT QMONTH #1 ml 08/20/21 subcutaneous auto-injector (Aimovig Autoinjector) omeprazole 20 mg capsule,delayed 20 mg PO BID #180 cap 08/20/21 release simvastatin 40 mg tablet 40 mg PO BEDTIME #90 tab 08/20/21 trazodone 100 mg tablet 100 mg PO DAILY #90 tab 08/20/21 levothyroxine 75 mcg tablet 75 mcg PO DAILY #30 tab 10/03/21 propranolol 80 mg capsule,24 80 mg PO DAILY #90 cap 10/24/21 hr,extended release sertraline 50 mg tablet 50 mg PO DAILY #30 tab 10/24/21 Allergies Allergy/AdvReac Type Severity Reaction Status Date / Time No Known Drug Allergies Allergy Verified 11/07/21 16:19 Review of Systems <Rishi De Dios DO - Last Filed: 11/10/21 03:53> Review of Systems Narrative: GENERAL: Denies chills, fatigue, malaise, fever, sweats. HEENT: Denies sinus pain, ear pain, sore throat, difficulty swallowing, dizziness. RESPIRATORY: Denies dyspnea, cough, wheezing, hemoptysis, sputum. CARDIOVASCULAR: Denies chest pain, palpitations, orthopnea, edema, GASTROINTESTINAL: Denies nausea, vomiting, abdominal pain, diarrhea, constipation, melena. : Denies dysuria, frequency, incontinence, hematuria, urinary retention. MUSCULOSKELETAL: denies weakness, joint pain, or bony pain SKIN: Denies rash, skin lesions, or other NEUROLOGIC: See HPI PSYCHIATRIC: No concerning psychosocial issues. 12 point review of systems is negative except for those stated above Patient History <Rishi De Dios DO - Last Filed: 11/10/21 03:53> Medical History Anxiety Barretts esophagus Chronic low back pain CKD (chronic kidney disease) stage 3, GFR 30-59 ml/min Colon polyps Common migraine Depression Dyslipidemia Fibromyalgia History of HPV infection Hypothyroidism Obstructive sleep apnea PTSD (post-traumatic stress disorder) Renal atrophy, bilateral Social History Smoking Status: Former smoker second hand exposure: No alcohol intake: never substance use type: does not use Smoking Status: Former smoker alcohol intake frequency: holidays/special occasions only Substance Use Type: does not use Exam <Rishi De Dios DO - Last Filed: 11/10/21 03:53> Narrative Exam Narrative: GENERAL: [66 year old patient appears stated age. Well-developed patient, in mild distress. Obviously uncomfortable, rubbing her temples HEAD: Atraumatic. Normocephalic. EYES: Pupils equal round and reactive. Extraocular motions intact. No scleral icterus. No injection or drainage. ENT: Nose without bleeding, purulent drainage. Throat without erythema, tonsillar hypertrophy or exudate. Airway patent. NECK: Trachea midline. Non tender. No meningeal signs CARDIOVASCULAR: Regular rate and rhythm without murmurs, gallops, or rubs. RESPIRATORY: Clear to auscultation. Breath sounds equal bilaterally. No wheezes, rales, or rhonchi. GASTROINTESTINAL: Abdomen soft, non-tender, nondistended. EXTREMITIES: No edema or joint tenderness. BACK: Nontender without deformity or crepitance. No flank tenderness. NEURO: AOx3. SKIN: No rash or erythema of visible areas NIH Stroke Scale 1a. LOC: Patient is alert and keenly responsive (0) 1b. LOC Questions: Patient answers both LOC questions accurately (0) 1c. LOC Commands: Patient performs both tasks correctly (0) 2. Best Gaze: Normal (0) 3. Visual: No visual loss (0) 4. Facial palsy: Normal symmetrical movements (0) 5. Motor arm: No drift (0) 6. Motor leg: No drift (0) 7. Limb ataxia: Absent (0) 8. Sensory: Normal (0) 9. Best language: No aphasia; normal (0) 10. Dysarthria: Normal (0) 11. Extinction and inattention: No abnormality (0) NIHSS: 0 Initial Vital Signs Initial Vital Signs: Vital Signs Temperature 96.8 F L 11/09/21 06:04 Pulse Rate 81 11/09/21 06:04 Respiratory Rate 15 11/09/21 06:04 Blood Pressure 194/95 H 11/09/21 06:04 Pulse Oximetry 98 11/09/21 06:04 <Rosamaria Solis DO - Last Filed: 11/09/21 08:08> Initial Vital Signs Initial Vital Signs: Vital Signs Temperature 96.8 F L 11/09/21 06:04 Pulse Rate 81 11/09/21 06:04 Respiratory Rate 15 11/09/21 06:04 Blood Pressure 194/95 H 11/09/21 06:04 Pulse Oximetry 98 11/09/21 06:04 Course <Rishi De Dios DO - Last Filed: 11/10/21 03:53> Orders Ordered: Discontinued Medications Dexamethasone (Dexamethasone 10 Mg/Ml Vial) 10 mg IV NOW ONE Stop: 11/09/21 06:07 Last Admin: 11/09/21 06:24 Dose: 10 mg Documented by: FATEMEH Diphenhydramine HCl (Diphenhydramine 50 Mg/Ml Vial) 25 mg IV NOW ONE Stop: 11/09/21 06:07 Last Admin: 11/09/21 06:25 Dose: 25 mg Documented by: FATEMEH Sodium Chloride (Normal Saline 0.9%) 1,000 mls @ 1,000 mls/hr IV BOLUS ONE Stop: 11/09/21 07:05 Last Infusion: 11/09/21 07:42 Dose: 0 mls/hr Documented by: Admin: 11/09/21 06:24 Dose: 1,000 mls/hr Documented by: FATEMEH Ketorolac Tromethamine (Ketorolac 30 Mg/Ml Vial) 15 mg IV NOW ONE Stop: 11/09/21 06:07 Last Admin: 11/09/21 06:25 Dose: 15 mg Documented by: FATEMEH Metoclopramide HCl (Metoclopramide 10 Mg/2 Ml Inj) 10 mg IV NOW ONE Stop: 11/09/21 06:07 Last Admin: 11/09/21 06:24 Dose: 10 mg Documented by: FATEMEH Vital Signs Vital signs: Vital Signs - 8 hr 11/09/21 06:04 11/09/21 06:31 11/09/21 06:32 Temperature 96.8 F L Pulse Rate 81 53 L 59 L Respiratory Rate 15 Blood Pressure 194/95 H 167/79 H Pulse Oximetry 98 98 97 11/09/21 07:00 11/09/21 07:02 11/09/21 07:30 Temperature Pulse Rate 60 64 57 L Respiratory Rate 18 Blood Pressure 139/71 132/67 Pulse Oximetry 96 97 94 <Rosamaria Solis, DO - Last Filed: 11/09/21 08:08> Orders Ordered: Discontinued Medications Dexamethasone (Dexamethasone 10 Mg/Ml Vial) 10 mg IV NOW ONE Stop: 11/09/21 06:07 Last Admin: 11/09/21 06:24 Dose: 10 mg Documented by: FATEMEH Diphenhydramine HCl (Diphenhydramine 50 Mg/Ml Vial) 25 mg IV NOW ONE Stop: 11/09/21 06:07 Last Admin: 11/09/21 06:25 Dose: 25 mg Documented by: FATEMEH Sodium Chloride (Normal Saline 0.9%) 1,000 mls @ 1,000 mls/hr IV BOLUS ONE Stop: 11/09/21 07:05 Last Infusion: 11/09/21 07:42 Dose: 0 mls/hr Documented by: Admin: 11/09/21 06:24 Dose: 1,000 mls/hr Documented by: FATEMEH Ketorolac Tromethamine (Ketorolac 30 Mg/Ml Vial) 15 mg IV NOW ONE Stop: 11/09/21 06:07 Last Admin: 11/09/21 06:25 Dose: 15 mg Documented by: FATEMEH Metoclopramide HCl (Metoclopramide 10 Mg/2 Ml Inj) 10 mg IV NOW ONE Stop: 11/09/21 06:07 Last Admin: 11/09/21 06:24 Dose: 10 mg Documented by: AFTEMEH Vital Signs Vital signs: Vital Signs - 8 hr 11/09/21 06:04 11/09/21 06:31 11/09/21 06:32 Temperature 96.8 F L Pulse Rate 81 53 L 59 L Respiratory Rate 15 Blood Pressure 194/95 H 167/79 H Pulse Oximetry 98 98 97 11/09/21 07:00 11/09/21 07:02 11/09/21 07:30 Temperature Pulse Rate 60 64 57 L Respiratory Rate 18 Blood Pressure 139/71 132/67 Pulse Oximetry 96 97 94 MDM - Headache <Rishi De Dios, DO - Last Filed: 11/10/21 03:53> [facility] Narrative Medical decision making narrative: 0700 - patient signed out to Dr. Solis pending response to medications and final disposition <Rosamaria Solis, - Last Filed: 11/09/21 08:08> [facility] Narrative Medical decision making narrative: 0700 - patient signed out to Dr. Solis pending response to medications and final disposition 0730 received sign-out from Dr. De Dios. I have seen evaluated patient myself. She overall appears very comfortable. She says the medicine she feels ready and able to go home. Discharge Plan Departure Patient Disposition: Home Clinical Impression: Migraine Instructions: DI for Migraine Activity Restrictions/Additional Instructions: *You have been diagnosed with migraine headache *What to do: The so-called that you are feeling better. Please rest for the rest of the day. Be sure to drink fluid through out the day as well. *Continue to take medications as directed *Follow up with your primary care provider in 2-3 days or call [phone] *Return to ER if you should have worsening headache numbness tingling weakness speech difficulty visual changes or any new, worsening or concerning symptoms Prescriptions: No Action sumatriptan succinate [Imitrex STATdose Pen] 6 mg/0.5 mL pen injector 6 mg SUBCUT ONCE PRN (Reason: migraine headache) Qty: 12 3RF Rx Instructions: may repeat dose once in 1 hour if not relieved sertraline 50 mg tablet 50 mg PO DAILY Qty: 30 0RF propranolol 80 mg capsule,extended release 24 hr 80 mg PO DAILY Qty: 90 1RF simvastatin 40 mg tablet 40 mg PO BEDTIME Qty: 90 3RF Aimovig Autoinjector 140 mg/mL auto-injector 140 mg SUBCUT QMONTH Qty: 1 11RF omeprazole 20 mg capsule,delayed release(DR/EC) 20 mg PO BID Qty: 180 3RF trazodone 100 mg tablet 100 mg PO DAILY Qty: 90 3RF ondansetron HCl 4 mg tablet 4 mg PO Q8H PRN (Reason: nausea and vomiting) Qty: 30 1RF levothyroxine 75 mcg tablet 75 mcg PO DAILY Qty: 30 0RF Referrals: Mihai Bradford ARNP [Primary Care Provider] -
[2021-11-09] MEDS: DEXAMETHASONE 10 MG/ML VIAL IV (06:24)
[2021-11-09] MEDS: METOCLOPRAMIDE 10 MG/2 ML INJ IV (06:24)
[2021-11-09] MEDS: SODIUM CHLORIDE 0.9% 1,000 ML 1000 ML IV (06:24)
[2021-11-09] MEDS: diphenhydrAMINE 50 MG/ML VIAL 25 MG IV (06:25)
[2021-11-09] MEDS: KETOROLAC 30 MG/ML VIAL 15 MG IV (06:25)
[2021-11-09 06:31] VITALS: PULSE 53; O2SAT 98
[2021-11-09 06:32] VITALS: BP 167/79; PULSE 59; O2SAT 97
[2021-11-09 07:00] VITALS: PULSE 60; O2SAT 96
[2021-11-09 07:02] VITALS: BP 139/71; PULSE 64; RESP 18; O2SAT 97
[2021-11-09 07:30] VITALS: BP 132/67; PULSE 57; O2SAT 94
== END 2021-11-09 07:53 | disposition home or self-care (01) ==
PROVIDERS: Emergency Provider Emergency Medicine; PCP Registered Nurse Diabetes Educator
DX: G43.909 Migraine, unspecified, not intractable, without status migrainosus (principal); Z87.891 Personal history of nicotine dependence
CPT/HCPCS: 36415; 96361; 96374; 96375; 99284; J1100; J1200; J1885; J2765

== ENCOUNTER → 2021-11-14 07:43 | Outpatient (CLI) | payer MEDICARE, MEDICAID, SELFPAY ==
[2021-11-14 09:30] LABS: TSH w/ Reflex to FT4 2.15 uIU/mL (0.47-4.68)
== END ==
PROVIDERS: PCP Registered Nurse Diabetes Educator; Referring Provider Registered Nurse Diabetes Educator; Visit Provider Registered Nurse Diabetes Educator
DX: E03.9 Hypothyroidism, unspecified (principal)
CPT/HCPCS: 36415; 84443

== ENCOUNTER → 2022-02-06 12:57 | Outpatient (CLI) | payer MEDICARE, MEDICAID, SELFPAY ==
--- NOTE | 2022-02-06 13:01 | DIET.CONS ---
Dietary Consultation Note Assessment: 66y [address] visit for help with hx of hyperlipidemia and concerns over chronic constipation/possible malabsorption. Pt has pmhx hiatal hernia c GERD, states was diagnosed c CKD and sees deputy general counsel (eGFR 50-60, Cr 1-1.06). Pt states deputy general counsel told her to limit protein intake, she read online to limit potassium, sodium, is confused about renal diet, states to RD she has kidney failure. constipation whole adult life- not unusual to not have BM in a week, colonoscopy 07/22 showed internal hemorrhoids and tubular adenoma of sigmoid colon, pt feels she is having pain in this area on regular basis. PCP has pt taking miralax daily until BMs become more normal. Pt did not know what normal was, educated pt she should be having 1 BM daily. Pt stopped miralax, 5d since last BM. Pt has concerning weight loss, UBW 175#, currently 127# (-27.5% in 1y, severe). Pt reports poor appetite whole life, but more so over the past 1y. Wt loss is unintentional. Usual Day: B: Thompson instant breakfast c almond milk L: MOW- does 1/4 to 1/2 of total meal or half sandwich (deviled ham, luna, bread) sometimes dinner drinks water and coffee doesn't eat sugar/sugar subs but dried fruit seems to be okay BM- last BM 5d ago, narrow and pencil like, longer, nurse case management in color. Nutrition Diagnosis: 1. Moderate Protein Calorie Malnutrition r/t poor appetite aeb 27.5% unintentional weight loss in 1y (severe), pt food recall shows she is meeting <75% kcal and protein needs. 2. inadequate dietary fiber intake r/t nutrition related knowledge deficit, poor appetite aeb pt with chronic constipation <1BM/week, colonoscopy showing internal hemorrhoids, pt food recall includes little to no soluble fiber. Interventions: 1. Educated pt on importance of hydration for kidney health and to manage constipation. Encouraged pt to drink water through the day and other non-caffeine beverages. Recc Haroon tea for stress and hydration. 2. Pt interested in possible food intolerance testing. Recc pt try gluten free diet for 2w to see if constipation or other sx improve. If no improvement, reintroduce gluten to diet. 3. Educated pt on role of soluble fiber in healthy bowel function. Recc metamucil daily c plenty of water and/or fiber foods such as beans, oats. 4. Reiterated importance of PCPs reccs to take miralax daily as well as probiotic to support healthy BMs at once daily. 5. Provided pt appropriate CKD education to limit sodium to 2g daily. Pt not consuming enough of the other nutrients of concern to limit pt. 6. Request PCP adds protein supplement drink to med list and fill out form so [employer] can deliver c her current meals to support malnutrition. EER: [id number] kcals (25-30kcal/kg), 55-60g PRO (1g/kg) Monitoring/Evaluations: f/u in 4w for weight check, sx check, and further strategize supportive nutrition Electronically Signed by: Anika Miller 02/06/22 13:01 Clinical Dietitian [address] [id number]
== END ==
PROVIDERS: PCP Registered Nurse Diabetes Educator; Referring Provider Registered Nurse Diabetes Educator; Visit Provider Registered Nurse Diabetes Educator
DX: E78.5 Hyperlipidemia, unspecified (principal); K59.09 Other constipation; E44.0 Moderate protein-calorie malnutrition; Z71.3 Dietary counseling and surveillance
CPT/HCPCS: 97802

== ENCOUNTER → 2022-03-06 12:12 | Outpatient (CLI) | payer MEDICARE, MEDICAID, SELFPAY ==
--- NOTE | 2022-03-06 12:26 | DIET.OUTPTC ---
Dietary Outpatient Consultation Note Consultation Date: 03/06/[address] 66[address] visit f/u for abnormal weight loss, HLD, and CKD3. Weight: 127# weight stable x4w Pt has been avoiding most gluten but having trouble because she gets meals from [employer]. Pt has been taking metamucil and Miralax daily, having 1 BM most days, not noticing any blood in stool. Pt still having some abd pains which may be associated with constipation, but less than previously. Pt with dry skin, not eating much healthy fat in diet, asking what to do for skin that is renal safe. Interventions: 1. Recc pt get celiac screen done to r/o gluten allergy. 2. Educated pt on increasing healthy fat in diet to support HLD and healthy skin. Provided pt handout on heart healthy fats with reccs to eat handful nuts, tbs peanut butter, or olive oil daily. This will also support pts weight status in renal friendly way, and support HDL levels. Monitoring/Evaluation: pt will call RD with results of celiac screen and to schedule prn Electronically Signed by: Anika Miller 03/06/22 12:26 Clinical Dietitian [address] [address]
== END ==
PROVIDERS: PCP Registered Nurse Diabetes Educator; Referring Provider Registered Nurse Diabetes Educator; Visit Provider Registered Nurse Diabetes Educator
DX: R63.4 Abnormal weight loss (principal); E78.5 Hyperlipidemia, unspecified; N18.30 Chronic kidney disease, stage 3 unspecified; Z71.3 Dietary counseling and surveillance
CPT/HCPCS: 97803

== ENCOUNTER → 2022-04-04 14:08 | Outpatient (CLI) | payer MEDICARE, MEDICAID, SELFPAY ==
[2022-04-04 16:26] LABS: Erythrocyte Sedimentation Rate 19 MM/HR (0-20)
[2022-04-04 17:39] LABS: Alanine Aminotransferase 11 IU/L (<35); Albumin 4.8 g/dL (3.5-5.0); Albumin Globulin Ratio 1.7 (1.0-2.8); Alkaline Phosphatase 58 U/L (38-126); Aspartate Aminotransferase 26 IU/L (14-36); Bilirubin Total 0.5 mg/dL (0.2-1.3); Bilirubin Unconjugated 0.3 mg/dL (0.0-1.1); Globulin 2.9 g/dL (1.7-4.1); HEMOLYSIS 16 (0-50); Total Protein 7.7 g/dL (6.3-8.2)
[2022-04-05 16:45] LABS: Deamidated Gliadin Ab IgA 8 units (0-19); Deamidated Gliadin Ab IgG 1 units (0-19); Immunoglobulin A,Qn 371 mg/dL (87-352); t-Transglutaminase IgA <2 U/mL (0-3)
== END ==
PROVIDERS: PCP Registered Nurse Diabetes Educator; Referring Provider Registered Nurse Diabetes Educator; Visit Provider Registered Nurse Diabetes Educator
DX: E03.9 Hypothyroidism, unspecified (principal); N18.31 Chronic kidney disease, stage 3a; R70.0 Elevated erythrocyte sedimentation rate; R74.8 Abnormal levels of other serum enzymes; R10.9 Unspecified abdominal pain; R63.4 Abnormal weight loss
CPT/HCPCS: 36415; 80076; 82784; 83516; 85651

== ENCOUNTER → 2022-06-06 12:29 | Outpatient (CLI) | payer MEDICARE, MEDICAID, SELFPAY ==
--- NOTE | 2022-06-06 12:59 | DI.RAD.S_ITS ---
PROCEDURE: XR CHEST 2V INDICATIONS: eval unintentional weight loss TECHNIQUE: 2 views of the chest were acquired. COMPARISON: [facility], CR, XR CHEST 1 VIEW, 09/09/2019, 10:51. FINDINGS: Surgical changes and devices: None. Lungs and pleura: Lungs are clear. No pleural effusions or pneumothorax. Mediastinum: Mediastinal contours are normal. Heart size is normal. Bones and chest wall: No suspicious bony abnormalities. Soft tissues appear unremarkable. IMPRESSION: No acute cardiopulmonary disease. Dictated by: Ev Escalante M.D. on 06/06/2022 at 14:32 Approved by: Ev Escalante M.D. on 06/06/2022 at 14:32
[2022-06-06 13:27] LABS: Add Manual Diff / Slide Review NO; Basophils Absolute Auto 100 /uL (0-100); Basophils Percent Auto 1.1 % (0-2); Eosinophils Absolute Auto 100 /uL (0-450); Eosinophils Percent Auto 1.4 % (2-4); Hematocrit 35.4 % (36-46); Hemoglobin 11.9 g/dL (12.0-16.0); Lymphocytes Absolute Auto 1900 /uL (1100-4500); Lymphocytes Percent Auto 28.7 % (25-40); Mean Corpuscular HGB Conc 33.8 % (30-36); Mean Corpuscular Hemoglobin 28.9 PG (26-34); Mean Corpuscular Volume 85.4 fL (80-100); Monocytes Absolute Auto 300 /uL (0-900); Monocytes Percent Auto 4.7 % (3-14); Neutrophils Absolute Auto 4400 /uL (1500-7000); Neutrophils Percent Auto 64.1 % (50-75); Platelet Count 191 X10^3/uL (150-400); Red Blood Cell Count 4.14 X10^6/uL (4.0-5.2); Red Cell Distribution Width 12.8 % (11.6-14.8); White Blood Cell Count 6.8 X10^3/uL (4.5-11.0)
[2022-06-06 13:33] LABS: Hemoglobin A1C% w Est Avg Glu 5.3 % (4.0-6.0)
[2022-06-06 13:52] LABS: Alanine Aminotransferase 10 IU/L (<35); Albumin 4.2 g/dL (3.5-5.0); Albumin Globulin Ratio 1.6 (1.0-2.8); Alkaline Phosphatase 57 U/L (38-126); Aspartate Aminotransferase 22 IU/L (14-36); BUN Creatinine Ratio 10.2 (6-22); Bilirubin Total 0.4 mg/dL (0.2-1.3); Blood Urea Nitrogen 9 mg/dL (7-17); C-Reactive Protein Quant < 0.5 mg/dL (<1.0); Calcium 9.2 mg/dL (8.4-10.2); Carbon Dioxide 28 mmol/L (22-32); Chloride 103 mmol/L (98-107); Estimated Glomerular Filt Rate > 60 mL/min (>60); Globulin 2.6 g/dL (1.7-4.1); Glucose 101 mg/dL (80-110); HEMOLYSIS < 15 (0-50); Sodium 140 mmol/L (137-145); Total Protein 6.8 g/dL (6.3-8.2)
[2022-06-06 14:17] LABS: TSH w/ Reflex to FT4 2.38 uIU/mL (0.47-4.68)
[2022-06-06 16:42] LABS: Appearance Urine UA CLEAR; Bilirubin Urine UA NEGATIVE (NEGATIVE); Color Urine UA YELLOW; Glucose Urine UA NEGATIVE (Negative); Ketones Urine UA NEGATIVE (NEGATIVE); Leukocyte Esterase Urine UA 1+ (NEGATIVE); Nitrite Urine UA NEGATIVE (Negative); Occult Blood Urine UA NEGATIVE (Negative); Protein Urine UA NEGATIVE (Negative); Urobilinogen Urine UA 0.2 E.U./dL (0.2)
[2022-06-06 16:50] LABS: HIV 1 & 2 Ab/Ag 4th Gen Combo NEGATIVE (NEGATIVE); Hep C Virus Ab w/Reflex Quant NEGATIVE s/c (NEGATIVE)
[2022-06-06 17:05] LABS: Bacteria Urine Few (2-10); Culture Indicated Urine Specimen Cultured; RBC Urine None Seen (0-5/HPF); WBC Urine 1-5/HPF (0-5/HPF)
[2022-06-07 05:12] LABS: Immunoglobulin A 329 mg/dL (87-352); Immunoglobulin G, Quantitative 459 mg/dL (586-1602); Immunoglobulin M, Quantitative 32 mg/dL (26-217)
[2022-06-07 14:36] LABS: Alpha-1-Globulin 0.2 g/dL (0.0-0.4); Alpha-2-Globulin 0.7 g/dL (0.4-1.0); Gamma Globulin 0.9 g/dL (0.4-1.8); Globulin Total 2.9 g/dL (2.2-3.9); Protein, Total 6.9 g/dL (6.0-8.5)
== END ==
PROVIDERS: PCP Registered Nurse Diabetes Educator; Referring Provider Registered Nurse Diabetes Educator; Visit Provider Registered Nurse Diabetes Educator
DX: R63.4 Abnormal weight loss (principal); R89.9 Unspecified abnormal finding in specimens from other organs, systems and tissues
CPT/HCPCS: 36415; 71046; 80053; 81001; 82784; 83036; 84155; 84165; 84443; 85025; 86140; 86803; 87086; 87389

== ENCOUNTER → 2022-06-13 13:46 | Outpatient (CLI) | payer MEDICARE, MEDICAID, SELFPAY ==
[2022-06-13 15:14] LABS: Appearance Urine UA CLEAR; Bilirubin Urine UA NEGATIVE (NEGATIVE); Color Urine UA YELLOW; Glucose Urine UA NEGATIVE (Negative); Ketones Urine UA NEGATIVE (NEGATIVE); Leukocyte Esterase Urine UA TRACE (NEGATIVE); Nitrite Urine UA NEGATIVE (Negative); Occult Blood Urine UA NEGATIVE (Negative); Protein Urine UA NEGATIVE (Negative); Specific Gravity Urine UA <=1.005 (1.000-1.035); Urobilinogen Urine UA 0.2 E.U./dL (0.2)
[2022-06-13 15:40] LABS: Bacteria Urine None Seen; Culture Indicated Urine Specimen Cultured; RBC Urine None Seen (0-5/HPF); WBC Urine None Seen (0-5/HPF)
--- NOTE | 2022-06-13 15:40 | DI.RAD.S_ITS ---
PROCEDURE: XR ABDOMEN MIN 2V INDICATIONS: please eval for stool back up TECHNIQUE: 2 views of the abdomen were acquired. COMPARISON: None. FINDINGS: Surgical changes and devices: Bilateral fallopian tube clips are noted. Bowel: No pneumoperitoneum. The bowel gas pattern is normal. Soft tissues: No masses; visualized solid organ contours appear normal in size. No suspicious abdominal calcifications. Bones: No suspicious bony abnormalities. IMPRESSION: No acute intra-abdominal findings. Stool burden is within normal limits. Dictated by: Teena Baker M.D. on 06/13/2022 at 16:17 Approved by: Teena Baker M.D. on 06/13/2022 at 16:18
== END ==
PROVIDERS: PCP Registered Nurse Diabetes Educator; Referring Provider Registered Nurse Diabetes Educator; Visit Provider Registered Nurse Diabetes Educator
DX: R63.4 Abnormal weight loss (principal); K59.00 Constipation, unspecified; R10.30 Lower abdominal pain, unspecified
CPT/HCPCS: 74019; 81001; 87086

== ENCOUNTER → 2022-06-22 10:57 | Outpatient (CLI) | payer MEDICARE, MEDICAID, SELFPAY ==
[2022-06-22 11:41] LABS: Occult Blood 1 Negative (Negative)
[2022-06-24 19:46] LABS: Occult Blood 2 Negative (Negative); Occult Blood 3 Negative (Negative)
== END ==
PROVIDERS: PCP Registered Nurse Diabetes Educator; Referring Provider Registered Nurse Diabetes Educator; Visit Provider Registered Nurse Diabetes Educator
DX: K92.1 Melena (principal); R63.4 Abnormal weight loss
CPT/HCPCS: 82270

== ENCOUNTER → 2022-08-14 07:53 | Outpatient (CLI) | payer MEDICARE, MEDICAID, SELFPAY ==
[2022-08-14 09:30] LABS: Influenza A - CEPHEID Flu A NEGATIVE (NEGATIVE); Influenza B - CEPHEID Flu B NEGATIVE (NEGATIVE); Respiratory Syncytial Virus Negative (Negative)
[2022-08-14 09:35] LABS: COVID-19 CEPHEID 4-PLEX PCR Negative (Negative)
== END ==
PROVIDERS: PCP Registered Nurse Diabetes Educator; Referring Provider Nurse Practitioner Family; Visit Provider Nurse Practitioner Family
DX: R05.9 Cough, unspecified (principal); R50.9 Fever, unspecified; Z20.822 Contact with and (suspected) exposure to COVID-19
CPT/HCPCS: 0241U

== ENCOUNTER → 2023-04-03 09:43 | Outpatient (CLI) | payer MEDICARE, MEDICAID, SELFPAY ==
[2023-04-03 10:08] LABS: Hematocrit 35.7 % (36-46); Hemoglobin 12.1 g/dL (12.0-16.0); Mean Corpuscular Hemoglobin 28.8 PG (26-34); Mean Corpuscular Volume 84.7 fL (80-100); Platelet Count 185 X10^3/uL (150-400); Red Blood Cell Count 4.21 X10^6/uL (4.0-5.2); Red Cell Distribution Width 13.2 % (11.6-14.8); White Blood Cell Count 7.7 X10^3/uL (4.5-11.0)
[2023-04-03 10:44] LABS: Alanine Aminotransferase 11 IU/L (<35); Albumin 4.1 g/dL (3.5-5.0); Albumin Globulin Ratio 1.3 (1.0-2.8); Alkaline Phosphatase 86 U/L (38-126); Aspartate Aminotransferase 22 IU/L (14-36); Bilirubin Total 0.4 mg/dL (0.2-1.3); Blood Urea Nitrogen 12 mg/dL (7-17); Calcium 8.9 mg/dL (8.4-10.2); Carbon Dioxide 30 mmol/L (22-32); Chloride 102 mmol/L (98-107); Cholesterol 200 mg/dL (140-199); Estimated Glomerular Filt Rate > 60 mL/min (>60); Globulin 3.1 g/dL (1.7-4.1); Glucose 103 mg/dL (80-110); HDL Cholesterol 56 mg/dL (40-60); HEMOLYSIS < 15 (0-50); LDL Cholesterol Calculated 92 mg/dL (<100); Potassium 4.2 mmol/L (3.4-5.1); Sodium 138 mmol/L (137-145); Total Protein 7.2 g/dL (6.3-8.2); Triglycerides 261 mg/dL (35-150)
[2023-04-03 11:12] LABS: TSH w/ Reflex to FT4 6.23 uIU/mL (0.47-4.68)
== END ==
PROVIDERS: PCP Registered Nurse Diabetes Educator; Referring Provider Registered Nurse Diabetes Educator; Visit Provider Registered Nurse Diabetes Educator
DX: E03.9 Hypothyroidism, unspecified (principal); E78.5 Hyperlipidemia, unspecified; N18.30 Chronic kidney disease, stage 3 unspecified
CPT/HCPCS: 36415; 80053; 80061; 84439; 84443; 85027

== ENCOUNTER → 2023-05-20 11:31 | Outpatient (CLI) | payer MEDICARE, MEDICAID, SELFPAY ==
[2023-05-20 13:36] LABS: TSH w/ Reflex to FT4 0.83 uIU/mL (0.47-4.68)
== END ==
PROVIDERS: PCP Registered Nurse Diabetes Educator; Referring Provider Registered Nurse Diabetes Educator; Visit Provider Registered Nurse Diabetes Educator
DX: E03.9 Hypothyroidism, unspecified (principal)
CPT/HCPCS: 36415; 84443

== ENCOUNTER → 2023-08-16 09:11 | Outpatient (CLI) | payer MEDICARE, MEDICAID, SELFPAY ==
[2023-08-16 10:25] LABS: Cholesterol 175 mg/dL (140-199); HDL Cholesterol 45 mg/dL (40-60); LDL Cholesterol Calculated 53 mg/dL (<100); Triglycerides 387 mg/dL (35-150)
[2023-08-16 11:01] LABS: TSH w/ Reflex to FT4 5.78 uIU/mL (0.47-4.68)
[2023-08-16 11:31] LABS: Free T4, Direct Thyroxine 1.67 ng/dL (0.78-2.19)
== END ==
PROVIDERS: PCP Registered Nurse Diabetes Educator; Referring Provider Registered Nurse Diabetes Educator; Visit Provider Registered Nurse Diabetes Educator
DX: E78.5 Hyperlipidemia, unspecified (principal); E03.9 Hypothyroidism, unspecified
CPT/HCPCS: 36415; 80061; 84439; 84443

== ENCOUNTER → 2023-10-03 16:24 | Outpatient (CLI) | payer MEDICARE, MEDICAID, SELFPAY ==
[2023-10-03 18:50] LABS: TSH w/ Reflex to FT4 0.83 uIU/mL (0.47-4.68)
== END ==
PROVIDERS: PCP Registered Nurse Diabetes Educator; Referring Provider Registered Nurse Diabetes Educator; Visit Provider Registered Nurse Diabetes Educator
DX: E03.9 Hypothyroidism, unspecified (principal)
CPT/HCPCS: 36415; 84443

== ENCOUNTER → 2024-05-19 14:43 | Outpatient (CLI) | payer MEDICARE, MEDICAID, SELFPAY ==
[2024-05-19 16:27] LABS: TSH w/ Reflex to FT4 3.59 uIU/mL (0.47-4.68)
== END ==
PROVIDERS: PCP Registered Nurse Diabetes Educator; Referring Provider Registered Nurse Diabetes Educator; Visit Provider Registered Nurse Diabetes Educator
DX: E03.9 Hypothyroidism, unspecified (principal)
CPT/HCPCS: 36415; 84443

== ENCOUNTER → 2024-08-11 11:46 | Outpatient (CLI) | payer MEDICARE, MEDICAID, SELFPAY ==
[2024-08-11 12:37] LABS: Hematocrit 36.5 % (36-46); Hemoglobin 12.3 g/dL (12.0-16.0); Mean Corpuscular HGB Conc 33.7 % (30-36); Mean Corpuscular Hemoglobin 28.2 PG (26-34); Mean Corpuscular Volume 83.5 fL (80-100); Platelet Count 214 X10^3/uL (150-400); Red Blood Cell Count 4.37 X10^6/uL (4.0-5.2); Red Cell Distribution Width 13.8 % (11.6-14.8); White Blood Cell Count 8.3 X10^3/uL (4.5-11.0)
[2024-08-11 12:56] LABS: Alanine Aminotransferase 11 IU/L (<35); Albumin 4.2 g/dL (3.5-5.0); Albumin Globulin Ratio 1.4 (1.0-2.8); Alkaline Phosphatase 85 U/L (38-126); Aspartate Aminotransferase 26 IU/L (14-36); BUN Creatinine Ratio 13.8 (6-22); Bilirubin Total 0.5 mg/dL (0.2-1.3); Blood Urea Nitrogen 13 mg/dL (7-17); Calcium 9.2 mg/dL (8.4-10.2); Carbon Dioxide 26 mmol/L (22-32); Chloride 106 mmol/L (98-107); Cholesterol 156 mg/dL (140-199); Estimated Glomerular Filt Rate > 60 mL/min (>60); Glucose 111 mg/dL (80-110); HDL Cholesterol 51 mg/dL (40-60); LDL Cholesterol Calculated 68 mg/dL (<100); Potassium 4.7 mmol/L (3.4-5.1); Sodium 139 mmol/L (137-145); Total Protein 7.2 g/dL (6.3-8.2); Triglycerides 184 mg/dL (35-150)
[2024-08-11 12:57] LABS: HEMOLYSIS 60 (0-50)
[2024-08-11 13:20] LABS: Hemoglobin A1C% w Est Avg Glu 5.8 % (4.0-6.0)
[2024-08-11 18:38] LABS: TSH w/ Reflex to FT4 3.33 uIU/mL (0.47-4.68)
[2024-08-11 20:18] LABS: Vitamin B12 743 pg/mL (239-931)
== END ==
PROVIDERS: PCP Registered Nurse Diabetes Educator; Referring Provider Registered Nurse Diabetes Educator; Visit Provider Registered Nurse Diabetes Educator
DX: R73.01 Impaired fasting glucose (principal); E03.9 Hypothyroidism, unspecified; E78.5 Hyperlipidemia, unspecified; R41.3 Other amnesia
CPT/HCPCS: 36415; 80053; 80061; 82607; 83036; 84443; 85027

== ENCOUNTER → 2024-09-22 08:44 | Outpatient (CLI) | payer MEDICARE, MEDICAID, SELFPAY ==
--- NOTE | 2024-09-22 08:46 | DI.RAD.S_ITS ---
PROCEDURE: XR HIP W PEL IF DONE LT 2V INDICATIONS: eval L hip and knee pain TECHNIQUE: AP pelvis with lateral view(s) of the left hip(s). COMPARISON: None. FINDINGS: Bones: No fractures or dislocations. Pelvic ring appears intact. No suspicious bony lesions. Nonuniform joint space narrowing and osteophytic lipping of the acetabuli. Soft tissues: The visualized bowel gas pattern is normal. No suspicious soft tissue calcifications. IMPRESSION: Mild to moderate left hip osteoarthritis. Dictated by: Go Barger M.D. on 09/22/2024 at 12:22 Approved by: Go Barger M.D. on 09/22/2024 at 12:23
--- NOTE | 2024-09-22 08:46 | DI.RAD.S_ITS ---
PROCEDURE: XR KNEE LT 3V INDICATIONS: eval L hip and knee pain TECHNIQUE: 3 views of the knee were acquired. COMPARISON: None. FINDINGS: Bones: No fractures or dislocations. No suspicious bony lesions. Tricompartmental joint space narrowing with associated osteophytosis. Soft tissues: No joint effusion. No suspicious soft tissue calcifications. IMPRESSION: [id number] tricompartmental osteoarthritis. Kellgren-Klaus Grade 2. Dictated by: Go Barger M.D. on 09/22/2024 at 12:23 Approved by: Go Barger M.D. on 09/22/2024 at 12:25
== END ==
PROVIDERS: PCP Registered Nurse Diabetes Educator; Referring Provider Registered Nurse Diabetes Educator; Visit Provider Registered Nurse Diabetes Educator
DX: M16.12 Unilateral primary osteoarthritis, left hip (principal); M17.12 Unilateral primary osteoarthritis, left knee; M25.552 Pain in left hip; M25.562 Pain in left knee; G89.29 Other chronic pain
CPT/HCPCS: 73502; 73562

== ENCOUNTER → 2025-08-23 11:10 | Outpatient (CLI) | payer MEDICARE, MEDICAID, SELFPAY ==
--- NOTE | 2025-08-23 11:12 | DI.RAD.S_ITS ---
PROCEDURE: XR SHOULDER LT MIN 2V INDICATIONS: eval bilateral shoulder pain x 2+ years TECHNIQUE: 3 views of the shoulder were acquired. COMPARISON: None. FINDINGS: Bones: No fractures or dislocations. No suspicious bony lesions. Visualized ribs appear intact. Acromioclavicular joint space narrowing with osteophytosis. Soft tissues: No suspicious soft tissue calcifications. IMPRESSION: Mild acromioclavicular osteoarthritis. Dictated by: Go Barger M.D. on 08/23/2025 at 16:34 Approved by: Go Barger M.D. on 08/23/2025 at 16:34
--- NOTE | 2025-08-23 11:12 | DI.RAD.S_ITS ---
PROCEDURE: XR SHOULDER RT MIN 2V INDICATIONS: eval bilateral shoulder pain x 2+ years TECHNIQUE: 3 views of the shoulder were acquired. COMPARISON: None. FINDINGS: Bones: No fractures or dislocations. No suspicious bony lesions. Visualized ribs appear intact. Acromioclavicular joint space narrowing with osteophytosis. Soft tissues: No suspicious soft tissue calcifications. IMPRESSION: Moderate acromioclavicular osteoarthritis. Dictated by: Go Barger M.D. on 08/23/2025 at 16:33 Approved by: Go Barger M.D. on 08/23/2025 at 16:34
[2025-08-23 12:00] LABS: Hematocrit 36.3 % (36-46); Hemoglobin 12.3 g/dL (12.0-16.0); Mean Corpuscular HGB Conc 34.0 % (30-36); Mean Corpuscular Hemoglobin 27.2 PG (26-34); Mean Corpuscular Volume 80.1 fL (80-100); Platelet Count 179 X10^3/uL (150-400)
[2025-08-23 12:13] LABS: Hemoglobin A1C% w Est Avg Glu 5.9 % (4.0-6.0)
[2025-08-23 12:37] LABS: Alanine Aminotransferase 16 IU/L (<35); Albumin 4.3 g/dL (3.5-5.0); Albumin Globulin Ratio 1.5 (1.0-2.8); Alkaline Phosphatase 94 U/L (38-126); Blood Urea Nitrogen 17 mg/dL (7-17); Calcium 9.0 mg/dL (8.4-10.2); Carbon Dioxide 24 mmol/L (22-32); Chloride 109 mmol/L (98-107); Cholesterol 164 mg/dL (140-199); Estimated Glomerular Filt Rate > 60 mL/min (>60); Globulin 2.9 g/dL (1.7-4.1); Glucose 105 mg/dL (70-99); HDL Cholesterol 64 mg/dL (40-60); HEMOLYSIS < 15 (0-50); Potassium 4.4 mmol/L (3.4-5.1); Sodium 142 mmol/L (137-145); Total Protein 7.2 g/dL (6.3-8.2); Triglycerides 236 mg/dL (35-150)
[2025-08-23 13:08] LABS: TSH w/ Reflex to FT4 1.12 uIU/mL (0.47-4.68)
== END ==
PROVIDERS: PCP Registered Nurse Diabetes Educator; Referring Provider Registered Nurse Diabetes Educator; Visit Provider Registered Nurse Diabetes Educator
DX: M19.011 Primary osteoarthritis, right shoulder (principal); M19.012 Primary osteoarthritis, left shoulder; M25.511 Pain in right shoulder; M25.512 Pain in left shoulder; E03.9 Hypothyroidism, unspecified; E78.5 Hyperlipidemia, unspecified; R73.01 Impaired fasting glucose; G89.29 Other chronic pain
CPT/HCPCS: 36415; 73030; 80053; 80061; 83036; 84443; 85027